=== PATIENT | female | born 1985 | race Caucasian/White ===

== ENCOUNTER 2018-06-12 15:16 | Outpatient (CLI) | payer SELFPAY ==
[2018-06-12 16:38] LABS: Appearance,Urine Cloudy (Clear); Bacteria,Urine Rare /hpf; Bilirubin,Urine Negative (Negative); Blood,Urine Negative (Negative); Color,Urine Yellow; Glucose,Urine (UA) Negative (Negative); Ketones,Urine Negative (Negative); Leukocyte Esterase,Urine Negative (Negative); Mucus,Urine Occasional /hpf; Nitrite,Urine Negative (Negative); Protein,Urine Trace (Negative); RBC,Urine 4 /hpf (0-5); Specific Gravity,Urine 1.024 (1.001-1.035); Squamous Epithelial Cell,Urine 15 /hpf (0-4); WBC,Urine 3 /hpf (0-5)
[2018-06-12 16:44] LABS: Amphetamine Screen,Urine Not Detected (NotDetected); Barbiturate Screen,Urine Not Detected (NotDetected); Benzodiazepines Screen,Urine Not Detected (NotDetected); Cocaine Screen,Urine Not Detected (NotDetected); Methadone Screen, Urine Not Detected (NotDetected); Opiate Screen,Urine Not Detected (NotDetected); Oxycodone Screen, Urine Not Detected (NotDetected); Phencyclidine Screen,Urine Not Detected (NotDetected); Tricyclic Antidepressant,Urine Not Detected (NotDetected); Urn Cannabinoid Scrn Not Detected (NotDetected)
[2018-06-12 16:46] VITALS: BP 131/66; PULSE 95; RESP 16; TEMP 97.6
--- NOTE | 2018-06-12 16:53 | US ---
EXAMINATION TYPE: US OB >= 14 wk fetus DATE OF EXAM: 06/12/2018 COMPARISON: None CLINICAL HISTORY: late careHTN. No previous ultrasound with this . Limited/suboptimal exam due to patient body habitus and late gestational age TECHNIQUE: Transabdominal (TA) GESTATIONAL AGE / DATING Dates by LMP: (33 weeks/5 days) EDC: 07/26/2018 Dates by Current Scan: (33 weeks/3 days) EDC: 07/28/2018 Beta HCG (if available): Not available at this time SURVEY IUP: Single PLACENTA: Posterior left lateral PREVIA: No Previa EMMY: 13.2 cm Normal CERVICAL LENGTH (transabdominal: norm > 3.0cm): 3.2 cm BIOMETRY PRESENTATION: Breech BPD: 8.2 cm 32 weeks / 6 days HC: 30.3 cm 33 weeks / 5 days AC: 28.8 cm 32 weeks / 6 days FL: 6.7 cm 34 weeks / 2 days ESTIMATED WEIGHT IN GRAMS: 2171 grams ESTIMATED WEIGHT IN LBS/OZ: 4 lbs. 13 oz. WEIGHT PERCENTAGE BASED ON ESTABLISHED DATES: 31.2% HC/AC: 1.1 Normal FL/AC: 32.1 Normal HEART RATE: 141 bpm RHYTHM: Normal MATERNAL WALL MEASUREMENT: 4.2 cm from skin to anterior uterine wall (if exam limited due to body hab itus). Live single IUP measuring 33 weeks 3 days. IMPRESSION: No complicating process seen.
[2018-06-12 17:10] LABS: ALT 30 U/L (9-52); AST 21 U/L (14-36); Blood Urea Nitrogen 11 mg/dL (7-17); Glucose 98 mg/dL (74-99); LDH 424 U/L (313-618); Uric Acid 3.8 mg/dL (3.7-7.4)
[2018-06-12 17:14] LABS: Basophils % (A) 0 %; Eosinophils % (A) 0 %; HCT 38.4 % (34.0-46.0); HGB 11.7 gm/dL (11.4-16.0); Hypochromasia Slight; Lymphocytes # (A) 1.9 k/uL (1.0-4.8); Lymphocytes % (A) 11 %; MCH 24.5 pg (25.0-35.0); MCHC 30.5 g/dL (31.0-37.0); MCV 80.1 fL (80.0-100.0); Mean Platelet Volume 7.7; Monocytes # (A) 0.4 k/uL (0-1.0); Monocytes % (A) 3 %; Neutrophils # (A) 14.5 k/uL (1.3-7.7); Neutrophils % (A) 86 %; Platelet Count 279 k/uL (150-450); RBC 4.79 m/uL (3.80-5.40); RDW 15.9 % (11.5-15.5); WBC 16.9 k/uL (3.8-10.6)
[2018-06-13 15:18] LABS: N. gonorrhoeae,PCR Negative (Neg,Equiv); Neisseria Source Urine
[2018-06-13 15:23] LABS: C. trachomatis,PCR Negative (Neg,Equiv); Chlamydia trachomatis Source Urine
--- NOTE | 2018-06-14 08:45 | P.MSEPDOC ---
Presenting Problems - Arrival Data Date of Arrival on Unit: 06/12/18 Time of Arrival on Unit: 15:16 Mode of Transport: Portable - Complaint Comment: pt came with script from office Medical History - Information : 1 Para: 0 Term: 0 : 0 Abortions: Spontaneous or Elective: 0 Number of Living Children: 0 - Gestational Age Gestational Age by SHARLA (wks/days): 33 Weeks and 5 Days - History Complications: No Care Vital Signs - Temperature Temperature: 97.6 F Temperature Source: Temporal Artery Scan - Pulse Right Brachial Pulse Rate: 95 Pulse Assessment Method: Automatic Cuff - Respirations Respiratory Rate: 16 Oxygen Delivery Method: Room Air - Blood Pressure Right Arm Blood Pressure: 131/66 Blood Pressure Mean: 87 Blood Pressure Source: Automatic Cuff Medical Screen Scoring (Pre) - Assessment Baseline FHR: 145 Heart Rate - NICHD Category: Category I (Normal) = 0 NST: Reactive Position: Non-vertex & not laboring = 3 - Total Score Total Score (Pre): 3 - Level of Risk Level of Risk: Low (0-5) Physician Notification (Pre) - Notification Comment Comment: sent from office with prescription for pih workup and labwork and ultrasound Medical Screen Scoring (Post) - Assessment Heart Rate: 145 Heart Rate - NICHD Category: Category I (Normal) = 0 NST: Reactive Position: Non-vertex & not laboring = 3 - Total Score Total Score (Post): 3 - Post Treatment Level of Risk Post Treatment Level of Risk: Low (0-5) Physician Notification (Post) - Physician Notified Physician Notified Date: 06/12/18 Physician Notified Time: 17:30 Spoke With: Miranda Castillo Order Received: Yes (d/c follow up in office sunday) Disposition - Disposition OB Disposition: Discharge to home, Written follow up instructions reviewed Discharge Date: 06/12/18 Discharge Time: 16:50 I agree with the RN Medical Screening Exam: Yes Risk & Benefit of care provided described in d/c instruction: Yes Diagnosis: GESTATIONAL HTN W/O SIGNIFICANT PROTEINURIA, THIRD TRIMESTER
[2018-06-15 04:30] LABS: HIV 1 AB Non-Reactive (Non-Reactive); HIV AB P24 Non-Reactive (Non-Reactive); HIV P24 AG Non-Reactive (Non-Reactive)
== END 2018-06-12 17:50 | disposition home or self-care (01) ==
LOC: FBPOP 15:16
PROVIDERS: ATTEND Obstetrics & Gynecology
DX: O13.3 Gestational [pregnancy-induced] hypertension without significant proteinuria, third trimester (principal); Z3A.33 33 weeks gestation of pregnancy
CPT/HCPCS: 59025; 76805; 80306; 81001; 82565; 82570; 82947; 83615; 84156; 84450; 84460; 84520; 84550; 85025; 86762; 86780; 86850; 86900; 86901; 87340; 87390; 87491; 87591

== ENCOUNTER 2018-07-08 12:40 | Inpatient (IN) | payer OTHER ==
[2018-07-08 13:16] VITALS: BMI 57.8
[2018-07-08 14:11] LABS: ALT 31 U/L (9-52); AST 21 U/L (14-36); Blood Urea Nitrogen 13 mg/dL (7-17); LDH 448 U/L (313-618); Uric Acid 3.8 mg/dL (3.7-7.4)
[2018-07-08 14:22] LABS: Anisocytosis Slight; Basophils % (A) 0 %; Eosinophils % (A) 0 %; HCT 39.8 % (34.0-46.0); HGB 12.3 gm/dL (11.4-16.0); Hypochromasia Slight; Lymphocytes # (A) 1.8 k/uL (1.0-4.8); Lymphocytes % (A) 13 %; MCH 25.2 pg (25.0-35.0); MCHC 30.9 g/dL (31.0-37.0); MCV 81.7 fL (80.0-100.0); Mean Platelet Volume 7.1; Monocytes # (A) 0.4 k/uL (0-1.0); Monocytes % (A) 3 %; Neutrophils % (A) 82 %; Platelet Count 252 k/uL (150-450); RBC 4.87 m/uL (3.80-5.40); RDW 16.4 % (11.5-15.5); WBC 13.3 k/uL (3.8-10.6)
[2018-07-08 14:59] LABS: Appearance,Urine Clear (Clear); Bilirubin,Urine Negative (Negative); Blood,Urine Negative (Negative); Color,Urine Yellow; Glucose,Urine (UA) Negative (Negative); Ketones,Urine Negative (Negative); Leukocyte Esterase,Urine Negative (Negative); Nitrite,Urine Negative (Negative); Protein,Urine Trace (Negative); Specific Gravity,Urine 1.018 (1.001-1.035); Urobilinogen,Urine <2.0 mg/dL (<2.0)
[2018-07-08] MEDS ORDERED: ceFAZolin 3 GM in SODIUM CHLORIDE 0.9% 100 ML IVPB ONE (15:20)
[2018-07-08] MEDS ORDERED: CITRIC ACID-SODIUM CITRATE 15 ML CUP PO ONE (15:20)
[2018-07-08] MEDS ORDERED: LACTATED RINGERS 1,000 ML IV SCH (16:30)
[2018-07-08] MEDS ORDERED: ePHEDrine SULFATE/0.9% NACL/PF 50 MG/5 ML SYRINGE IV ONE (17:33)
[2018-07-08] MEDS ORDERED: LACTATED RINGERS 1,000 ML BAG IV ONE (17:33)
[2018-07-08] MEDS ORDERED: KETOROLAC 30 MG/ML 1 ML VIAL ONE (17:33)
[2018-07-08] MEDS ORDERED: OXYTOCIN 10 UNIT/ML 1 ML VIAL ONE (17:33)
[2018-07-08] MEDS ORDERED: NALBUPHINE 10 MG/ML (1 ML AMP) ONE (17:33)
[2018-07-08] MEDS ORDERED: ONDANSETRON 4 MG/2 ML VIAL ONE (17:33)
[2018-07-08] MEDS ORDERED: MORPHINE SULFATE (PF) 0.3 MG/0.3 ML SYR ONE (17:33)
[2018-07-08] MEDS ORDERED: ZOLPIDEM 5 MG TAB PO PRN (18:15)
[2018-07-08] MEDS ORDERED: ACETAMINOPHEN TAB 325 MG TAB PO PRN (18:15)
[2018-07-08] MEDS ORDERED: ONDANSETRON 4 MG/2 ML VIAL IVP PRN (18:15)
[2018-07-08] MEDS ORDERED: diphenhydrAMINE 25 MG CAP PO PRN (18:15)
[2018-07-08] MEDS ORDERED: KETOROLAC 30 MG/ML 1 ML VIAL IVP PRN (18:15)
[2018-07-08] MEDS ORDERED: HYDROcodone/APAP 7.5-325MG 1 EACH TAB PO PRN (18:15)
[2018-07-08] MEDS ORDERED: diphenhydrAMINE 50 MG/ML 1 ML VIAL IVP PRN ×2 (18:15)
[2018-07-08] MEDS ORDERED: METOCLOPRAMIDE 5 MG/ML 2 ML VIAL IVP PRN (18:15)
[2018-07-08] MEDS ORDERED: NALOXONE 0.4 MG/ML 1 ML VIAL IV PRN (18:15)
[2018-07-08] MEDS ORDERED: diphenhydrAMINE 50 MG CAP PO PRN (18:15)
--- NOTE | 2018-07-08 18:18 | P.HPOB ---
History of Present Illness H&P Date: 07/08/18 Chief Complaint: Intrauterine at term: Gestational hypertension Trace is a 33-year-old G3 1 P0 at 37 weeks gestation who arrived to my office today with elevated blood pressure. She was undergoing her normal twice weekly NST and blood pressure was noted to be elevated. She was sent to labor and delivery for primary as baby was breech on last evaluation and she has gestational hypertension. Her Precis course has been, K by gestational hypertension and late care. She did not [facility] until 33 weeks but has been seen weekly since that time. She's had twice weekly NSTs and we have followed her very closely for preeclampsia. No preeclamptic labs were elevated during her initial evaluation at 33 weeks and none were elevated today. It appears that she has either gestational hypertension or has undiagnosed hypertension which is also possibility since she is morbidly obese. Otherwise she denies any other problems with Precis. Pertinent labs include O+ blood type Rh antibody was negative, rubella immune, hepatitis B surface antigen RPR and GBS were all negative. On physical exam this is a morbidly obese female whose HEENT is otherwise unremarkable. Her heart is regular, lungs are clear, extremities are without pain. Abdomen is soft gravid uterus is noted. Category 1 tracing is noted. Past Medical History Past Medical History: No Reported History History of Any Multi-Drug Resistant Organisms: None Reported Past Surgical History: No Surgical Hx Reported Past Anesthesia/Blood Transfusion Reactions: No Reported Reaction Past Psychological History: No Psychological Hx Reported Smoking Status: Never smoker Past Alcohol Use History: None Reported Past Drug Use History: None Reported - Past Family History Sister(s) Family Medical History: No Reported History Medications and Allergies Home Medications Medication Instructions Recorded Confirmed Type Pnv No.95/Ferrous Fum/Folic AC 1 tab PO DAILY 07/08/18 07/08/18 History [ Multivitamin Tablet] Allergies Allergy/AdvReac Type Severity Reaction Status Date / Time No Known Allergies Allergy Verified 07/08/18 12:46 Exam Osteopathic Statement: *. No significant issues noted on an osteopathic structural exam other than those noted in the History and Physical/Consult. Vital Signs Temp Pulse Resp BP Pulse Ox 07/08/18 12:45 97.6 F 80 18 186/90 98 Intake and Output 07/08/18 07/08/18 07/08/18 06:59 14:59 22:59 Other: # Voids 0 Weight 152.861 kg - OBG Physical Exam Breast: both: normal (no masses) Abdomen: bowel sounds normal, no diffuse tenderness, no bruit present, no guarding noted, no hepatomegaly, no splenomegaly, no mass Vulva: both: normal Vagina: normal moisture, no discharge Cervix: no lesion, no discharge Uterus: normal size, normal contour Adnexa: both: normal Anus/Rectum: normal perianal skin, no rectal mass, no hemorrhoids, heme negative Results Result Diagrams: 07/08/18 13:28 07/08/18 13:28 Abnormal Lab Results - Last 24 Hours (Table) 07/08/18 07/08/18 07/08/18 Range/Units 13:28 14:38 14:38 WBC 13.3 H (3.8-10.6) k/uL MCHC 30.9 L (31.0-37.0) g/dL RDW 16.4 H (11.5-15.5) % Neutrophils # 11.0 H (1.3-7.7) k/uL Urine Protein Trace H (Negative) U Random Total Protein 16 H (<12) mg/dL
--- NOTE | 2018-07-08 18:36 | P.OP ---
Date of Procedure: 07/08/18 Preoperative Diagnosis: Intrauterine at term: Gestational hypertension: Breech Postoperative Diagnosis: Same Procedure(s) Performed: Primary low-transverse section Anesthesia: spinal Surgeon: Adarsh Jean [employer] Testing Technician #1: Syeda Lugo Estimated Blood Loss (ml): 800 IV fluids (ml): 800 Urine output (ml): 200 Pathology: other (Placenta) Condition: stable Disposition: floor Operative Findings: Female scores of 8 and 9 at one and 5 minutes just [place] and a weight of 6 lbs. 5 oz. Description of Procedure: Patient was taken to the operating suite where a spinal anesthetic was found be adequate. She was prepped and draped in normal sterile fashion and placed in dorsal supine position. There was a leftward tilt. Initially a Pfannenstiel skin incision was made and this incision was then carried through to underlying layer of the fascia was second knife. Fascia was then nicked in midline and this opening was extended laterally with Rockwell scissors. Superior and inferior aspect of this incision were then grasped tented up and bluntly and sharply dissected off the rectus muscles. Rectus muscles were then divided the midline and blunt dissection peritoneum was made. This opening was then extended superiorly and inferiorly with good visualization of both bowel bladder. Bladder blade was then placed bladder flap identified and entered with Metzenbaum scissors. This opening was then extended across the face of the uterus with Metzenbaum scissors and her bladder flap was digitally created. Knife was then used to incise uterus and this incision was fully developed with hemostat. This opening was then extended bluntly and buttock was noted and lifted into the incision with gentle traction the baby was easily delivered through the incision. Mouth and nares were then bulb suctioned and the umbilical cord was clamped cut usual fashion. Her she was present to assume care. Placenta was then delivered intact Pitocin was added to the IV. Uterus was then exteriorized cleared of clots and debris and closed in 2 layers with 0 Vicryl suture. Once excellent hemostasis was obtained uterus had blood and debris suctioned the posterior cul-de-sac and the uterus was then reinserted into the abdomen. Peritoneal layer was then reapproximated with 0 Vicryl suture. Fascial layer was closed with 0 Vicryl suture. One layer of 3-0 Vicryl was placed in the deep subcuticular tissues to reapproximate the skin and close the space. Skin was then closed with 3-0 Vicryl. Sponge, lap, needle counts were all correct 2. Patient was then taken to the recovery room in stable and satisfactory condition.
[2018-07-08] MEDS: LACTATED RINGERS 1,000 ML IV SCH (20:55)
[2018-07-08] MEDS: SENNOSIDES-DOCUSATE SODIUM 1 EACH TAB PO SCH (20:55)
[2018-07-09] MEDS ORDERED: NALOXONE 0.4 MG/ML 1 ML VIAL IV PRN (00:30)
[2018-07-09] MEDS ORDERED: HYDROmorphone 1 MG/ML 1 ML SYRINGE IVP PRN (00:30)
[2018-07-09] MEDS: LACTATED RINGERS 1,000 ML IV SCH (00:47)
[2018-07-09 06:53] LABS: Anisocytosis Slight; Basophils % (A) 0 %; Eosinophils % (A) 0 %; HCT 35.2 % (34.0-46.0); HGB 10.7 gm/dL (11.4-16.0); Hypochromasia Slight; Lymphocytes # (A) 1.7 k/uL (1.0-4.8); Lymphocytes % (A) 12 %; MCH 24.7 pg (25.0-35.0); MCHC 30.3 g/dL (31.0-37.0); MCV 81.3 fL (80.0-100.0); Mean Platelet Volume 7.1; Monocytes # (A) 0.4 k/uL (0-1.0); Monocytes % (A) 3 %; Neutrophils # (A) 11.9 k/uL (1.3-7.7); Neutrophils % (A) 84 %; Platelet Count 244 k/uL (150-450); RBC 4.32 m/uL (3.80-5.40); RDW 16.6 % (11.5-15.5); WBC 14.1 k/uL (3.8-10.6)
--- NOTE | 2018-07-09 11:01 | P.PNOBGPC ---
Subjective - Subjective Principal diagnosis: Postop day 1 Interval history: Overall since and is doing well. She voices no complaints and her vital signs are significantly improved. Her blood pressures are in the 130s over 70s. She has no headache, epigastric pain or visual changes. She does have 2+ pitting edema, but this is not unusual in the immediate postop timeframe. We'll continue close observation. Patient reports: Reports appetite normal, Reports voiding normally, Reports pain well controlled, Reports ambulating normally : doing well Objective - Vital Signs Latest vital signs: Vital Signs Temp Pulse Resp BP Pulse Ox 07/09/18 10:00 98 07/09/18 08:00 98.2 F 63 18 138/78 97 07/09/18 06:00 16 98 07/09/18 04:00 97.8 F 61 16 132/69 98 07/09/18 03:31 16 07/09/18 01:31 16 97 07/09/18 00:31 16 97 07/08/18 23:58 97.8 F 61 16 132/69 97 07/08/18 20:30 96.5 F L 62 16 151/71 98 07/08/18 20:00 68 16 125/58 07/08/18 19:30 68 16 124/58 07/08/18 19:15 69 16 128/60 93 L 07/08/18 19:00 78 18 98/49 97 07/08/18 18:45 75 18 124/62 07/08/18 18:30 98.1 F 72 18 123/60 07/08/18 12:45 97.6 F 80 18 186/90 98 Intake and Output 07/08/18 07/09/18 07/09/18 22:59 06:59 14:59 Output Total 250 300 400 Balance -250 -300 -400 Output: Urine 250 300 400 Uretheral ([place]) 200 Other: # Voids 1 - Exam Lungs: bilateral: normal Chest: Normal S1, Normal S2 Extremities: Present: normal Abdomen: Present: normal appearance, soft. Absent: distention, tenderness Incision: Present: normal, dry, intact Uterus: Present: normal, firm - Labs Labs: Abnormal Lab Results - Last 24 Hours (Table) 07/08/18 07/08/18 07/08/18 Range/Units 13:28 14:38 14:38 WBC 13.3 H (3.8-10.6) k/uL Hgb (11.4-16.0) gm/dL MCH (25.0-35.0) pg MCHC 30.9 L (31.0-37.0) g/dL RDW 16.4 H (11.5-15.5) % Neutrophils # 11.0 H (1.3-7.7) k/uL Urine Protein Trace H (Negative) U Random Total Protein 16 H (<12) mg/dL 07/09/18 Range/Units 06:37 WBC 14.1 H (3.8-10.6) k/uL Hgb 10.7 L (11.4-16.0) gm/dL MCH 24.7 L (25.0-35.0) pg MCHC 30.3 L (31.0-37.0) g/dL RDW 16.6 H (11.5-15.5) % Neutrophils # 11.9 H (1.3-7.7) k/uL Urine Protein (Negative) U Random Total Protein (<12) mg/dL
--- NOTE | 2018-07-09 11:50 | P.PN ---
Progress Note - Text Anesthesia POD 1. Patient is status post section under spinal anesthesia with intra-thecal preservative free morphine 300 g. Mild pruritus, excellent post-op analgesia, and no headache or other complications.
[2018-07-09] MEDS: SENNOSIDES-DOCUSATE SODIUM 1 EACH TAB PO SCH ×2 (15:10→20:06)
[2018-07-09] MEDS: IBUPROFEN 600 MG TAB PO PRN (20:06)
[2018-07-10] MEDS: IBUPROFEN 600 MG TAB PO PRN ×2 (01:29→20:17)
--- NOTE | 2018-07-10 08:52 | P.PNOBGPC ---
Subjective - Subjective Principal diagnosis: Postop day 2 Interval history: Trace is seen and evaluated this morning. It is noted that her blood pressures have been in the 150/80 range and she had a 160/80 range earlier this morning. Will initiate labetalol 100 mg by mouth twice a day this morning. If blood pressures continue to be elevated despite antihypertensive we'll consult internal medicine/hospitalist for further recommendations. She denies headache , epigastric pain or visual changes or any other signs or symptoms of preeclampsia. She does have's still some pitting edema but relates that she is voiding without difficulty. Otherwise vital signs are stable and she voices no other clinical complaints this morning. Heart regular, lungs clear, extremities without pain with 1-2+ pitting edema. Abdomen soft uterus is firm below the umbilicus and her incision is otherwise clean dry and intact. Assessment postop day 2 with continued hypertension Plan initiate anterior hypertensive and continue current care. Objective - Vital Signs Latest vital signs: Vital Signs Temp Pulse Resp BP Pulse Ox 07/10/18 08:00 98.2 F 88 18 161/80 97 07/10/18 00:00 98.2 F 86 18 153/83 99 07/09/18 18:00 18 98 07/09/18 16:00 98.7 F 78 18 155/79 98 07/09/18 14:00 18 97 07/09/18 12:00 98.2 F 69 18 148/78 97 07/09/18 10:00 98 Intake and Output 07/09/18 07/10/18 07/10/18 22:59 06:59 14:59 Other: # Voids 1 2 1
[2018-07-10] MEDS: SENNOSIDES-DOCUSATE SODIUM 1 EACH TAB PO SCH ×2 (09:02→20:17)
[2018-07-10] MEDS: LABETALOL 100 MG TAB PO SCH ×2 (09:07→20:23)
[2018-07-11] MEDS: SENNOSIDES-DOCUSATE SODIUM 1 EACH TAB PO SCH (08:00)
--- NOTE | 2018-07-11 08:47 | P.PNOBGPC ---
Subjective - Subjective Principal diagnosis: Postop day 3 Interval history: Overall patient is doing very well. She is ambulating and voiding. She is tolerating her diet. Her blood pressure this morning was significantly improved over last night. We'll plan to continue labetalol. Medical consult is pending but unless something changes I suspect we will be able to discharge her to home today. Vital signs are currently stable and afebrile. Heart regular, lungs clear, extremities are without pain. Abdomen is soft and nontender. Her incision is clean dry and intact. Assessment postop day 3. Plan discharged home later today. Objective - Vital Signs Latest vital signs: Vital Signs Temp Pulse Resp BP Pulse Ox 07/11/18 01:00 98.2 F 77 17 138/78 95 07/10/18 21:17 159/85 07/10/18 20:00 80 17 162/88 98 07/10/18 15:13 98.8 F 86 16 161/78 97 07/10/18 12:00 80 18 152/82 Intake and Output 07/10/18 07/11/18 07/11/18 22:59 06:59 14:59 Other: # Voids 2 2
[2018-07-11] MEDS: LABETALOL 100 MG TAB PO SCH (09:39)
[2018-07-11 11:29] VITALS: BP 156/79; PULSE 83; RESP 18; TEMP 97.8
--- NOTE | 2018-07-11 12:37 | P.DS ---
Providers Date of admission: 07/08/18 12:40 Expected date of discharge: 07/11/18 Attending physician: Adarsh Jean Consults: 07/10/18 16:25 Consult Physician Urgent Consulting Provider: Evelyn Wells Consult Reason/Comments: hypertension Do you want consulting provider notified?: Yes Primary care physician: Stated None Hospital Course: Overall [place] is doing very well. It is noted that she is had still some mild elevations in blood pressure 156/78. Interim medicine is doing their evaluation at this time most likely, she will have her labetalol increased to 3 times a day. All the questions are answered for her. The goal will be to discharge her to home today with instructions to follow up with me on Sunday as well as instructions to follow up with her primary care provider. We'll adjust her medication to 3 times a day. On physical exam vital signs are again stable other than mild increase in blood pressure. Heart regular, lungs clear, extremities are without pain. Abdomen is soft but obese. Incision is otherwise clean dry and intact. Assessment postop day 3. Plan discharged home follow up with me in 5 days. Prescription for Bath, Motrin and labetalol have all been forwarded to her pharmacy. All other questions are answered for her at this time. Patient Condition at Discharge: Stable Plan - Discharge Summary New Discharge Prescriptions: New Labetalol [Trandate] 100 mg PO BID #60 tablet Ibuprofen [Motrin] 600 mg PO Q6HR PRN #30 tab PRN Reason: Pain HYDROcodone/APAP 5-325MG [[place] 5-325] 1 tab PO Q4HR PRN #30 tab PRN Reason: Pain No Action Pnv No.95/Ferrous Fum/Folic AC [ Multivitamin Tablet] 1 tab PO DAILY Discharge Medication List Pnv No.95/Ferrous Fum/Folic AC [ Multivitamin Tablet] 1 tab PO DAILY 07/08/18 [History] HYDROcodone/APAP 5-325MG [[place]ath 5-325] 1 tab PO Q4HR PRN #30 tab 07/11/18 [Rx] Ibuprofen [Motrin] 600 mg PO Q6HR PRN #30 tab 07/11/18 [Rx] Labetalol [Trandate] 100 mg PO BID #60 tablet 07/11/18 [Rx] Follow up Appointment(s)/Referral(s): Adarsh Jean DO [Doctor of Osteopathic Medicine] - 1 Week Activity/Diet/Wound Care/Special Instructions: No heavy lifting, limit stairs and driving, and pelvic rest. If any high temperatures, heavy bleeding, or severe pain call my office Discharge Disposition: HOME SELF-CARE
--- NOTE | 2018-07-11 14:40 | P.CONS ---
History of Present Illness - Reason for Consult Hypertension - History of Present Illness 33-year-old pleasant female was admitted for sections underwent surgery baby and the mother are healthy at this time. I was consulted for consistently elevated blood pressures in to 150s 160 systolic patient is receiving labetalol with the fairly controlled blood pressure and heart rate. Patient never had any issues with the blood pressure before . Patient is a obese female and will be given believes patient may have essential hypertension which I cannot completely rule out. Patient does not have any proteinuria AST and ALT are within normal limits including LDH within which is within normal limits. Patient does not have a classic preeclampsia but may be still continues to see induced hypertension. Patient is clinically otherwise doing okay can be discharged on labetalol 100 3 times a day. I asked the patient to check the blood pressure twice a day and take to PCPs office she may or may not require labetalol down the line. Counseling regarding weight loss diet was provided. Review of Systems REVIEW OF SYSTEMS: CONSTITUTIONAL: No fever, no malaise, no fatigue. HEENT: No recent visual problems or hearing problems. Denied any sore throat. CARDIOVASCULAR: No chest pain, orthopnea, PND, no palpitations, no syncope. PULMONARY: No shortness of breath, no cough, no hemoptysis. GASTROINTESTINAL: No diarrhea, no nausea, no vomiting, no abdominal pain. NEUROLOGICAL: No headaches, no weakness, no numbness. HEMATOLOGICAL: Denies any bleeding or petechiae. GENITOURINARY: Denies any burning micturition, frequency, or urgency. MUSCULOSKELETAL/RHEUMATOLOGICAL: Denies any joint pain, swelling, or any muscle pain. ENDOCRINE: Denies any polyuria or polydipsia. The rest of the 14-point review of systems is negative. Past Medical History Past Medical History: No Reported History History of Any Multi-Drug Resistant Organisms: None Reported Past Surgical History: No Surgical Hx Reported Past Anesthesia/Blood Transfusion Reactions: No Reported Reaction Past Psychological History: No Psychological Hx Reported Smoking Status: Never smoker Past Alcohol Use History: None Reported Past Drug Use History: None Reported - Past Family History Sister(s) Family Medical History: No Reported History Medications and Allergies Home Medications Medication Instructions Recorded Confirmed Type Pnv No.95/Ferrous Fum/Folic AC 1 tab PO DAILY 07/08/18 07/08/18 History [ Multivitamin Tablet] HYDROcodone/APAP 5-325MG [[place] 1 tab PO Q4HR PRN #30 tab 07/11/18 Rx 5-325] Ibuprofen [Motrin] 600 mg PO Q6HR PRN #30 tab 07/11/18 Rx Labetalol [Trandate] 100 mg PO BID #60 tablet 07/11/18 Rx Labetalol [Trandate] 100 mg PO TID #60 tab 07/11/18 Rx Allergies Allergy/AdvReac Type Severity Reaction Status Date / Time No Known Allergies Allergy Verified 07/08/18 12:46 Physical Exam Vitals: Vital Signs Temp Pulse Resp BP Pulse Ox 07/11/18 08:00 97.8 F 83 18 156/79 97 07/11/18 01:00 98.2 F 77 17 138/78 95 07/10/18 21:17 159/85 07/10/18 20:00 80 17 162/88 98 07/10/18 15:13 98.8 F 86 16 161/78 97 Intake and Output 07/10/18 07/11/18 07/11/18 22:59 06:59 14:59 Other: # Voids 2 2 PHYSICAL EXAMINATION: GENERAL: The patient is alert and oriented x3, not in any acute distress. Well developed, well nourished. HEENT: Pupils are round and equally reacting to light. EOMI. No scleral icterus. No conjunctival pallor. Normocephalic, atraumatic. No pharyngeal erythema. No thyromegaly. CARDIOVASCULAR: S1 and S2 present. No murmurs, rubs, or gallops. PULMONARY: Chest is clear to auscultation, no wheezing or crackles. ABDOMEN: Soft, nontender, nondistended, normoactive bowel sounds. No palpable organomegaly. MUSCULOSKELETAL: No joint swelling or deformity. EXTREMITIES: No cyanosis, clubbing, or pedal edema. NEUROLOGICAL: Gross neurological examination did not reveal any focal deficits. SKIN: No rashes. Results CBC & Chem 7: 07/09/18 06:37 07/08/18 13:28 Assessment and Plan Plan: -Elevated blood pressure most probably -induced hypertension although essential hypertension cannot be ruled out further management as mentioned in the history itself leukocytosis reactive secondary to surgery no further intervention is necessary no signs or symptoms of infection at this time -Status post a section, further management as per primary service Patient can be discharged from medical perspective on labetalol 100 mg 3 times a day with a follow-up with primary care physician in about a week
== END 2018-07-11 14:47 | disposition home or self-care (01) | DRG 788 ==
LOC: 4FBP 12:40
PROVIDERS: ADMIT Obstetrics & Gynecology; ATTEND Obstetrics & Gynecology
PROC: 10D00Z1 Extraction of Products of Conception, Low, Open Approach (ICD-10-PCS; principal; 2018-07-08 17:30)
DX: O13.4 Gestational [pregnancy-induced] hypertension without significant proteinuria, complicating childbirth (principal); O99.214 Obesity complicating childbirth; E66.01 Morbid (severe) obesity due to excess calories; L29.9 Pruritus, unspecified; Z3A.37 37 weeks gestation of pregnancy; Z37.0 Single live birth; Z71.3 Dietary counseling and surveillance
CPT/HCPCS: 81003; 82565; 82570; 83615; 84156; 84450; 84460; 84520; 84550; 85025; 86850; 86900; 86901; 88307

== ENCOUNTER → 2024-07-01 | Outpatient (CLI) | payer OTHER ==
--- NOTE | 2024-07-01 14:52 | MM ---
Reason for Exam: Screening (asymptomatic). Baseline mammogram. Patient History: Menarche at age 9. First Full-Term at age 34. Late child-bearing (after 30). Last menstrual period: 06/29/2024 Risk Values: Andra 5 year model risk: 0.8%. NCI Lifetime model risk: 14.8%. Prior Study Comparison: Patient's first Mammogram. No prior studies available for comparison. Tissue Density: There are scattered areas of fibroglandular density. Findings: Analyzed By CAD. Right breast: There is no suspicious group of microcalcifications or new suspicious mass. Left breast: There is no suspicious group of microcalcifications or new suspicious mass. Overall Assessment: Negative, BI-RAD 1 Management: Screening Mammogram of both breasts in [address] [facility] will attempt to contact patient to return for supplemental views and ultrasound if indicated. Patient should continue monthly self-breast exams. A clinical breast exam by your physician is recommended on an annual basis. This exam should not preclude additional follow-up of suspicious palpable abnormalities. Note on Andra scores and lifetime risk: 1. A Andra score greater than 3% is considered moderate risk. If this is the case, consider specialist referral to assess eligibility for a risk reducing agent. 2. If overall lifetime risk for the development of breast cancer is 20% or higher, the patient may qualify for future screening with alternating mammogram and breast MRI. [facility], , 07/01/2024 2:49 PM. Electronically signed and approved by: Waqas Valera DO
== END | disposition home or self-care (01) ==
LOC: RADMAMWWP 14:25
PROVIDERS: ATTEND Family Medicine
DX: Z12.31 Encounter for screening mammogram for malignant neoplasm of breast (principal); R92.323 Mammographic fibroglandular density, bilateral breasts
CPT/HCPCS: 77067